=== PATIENT | male | born 1950 ===

== ENCOUNTER 2018-03-13 08:00 | Emergency (ER) | payer MEDICARE, MEDICAID ==
[2018-03-13 08:32] LABS: #Eosinphils 0.2 thou/uL (0.0-0.7); #Lymphocytes 1.6 thou/uL (1.20-3.40); #Monocytes 0.5 thou/uL (0.11-0.59); #Neutrophils 2.8 thou/uL (1.40-6.50); %Basophils 0.8 % (0.0-1.0); %Eosinophils 3.9 % (0.0-10.0); %Monocytes 8.9 % (0.0-10.0); %Neutrophils 55.4 % (42.0-75.0); Hemoglobin 13.3 g/dL (14.0-18.0); Mean Corpuscular HGB CONC 30.9 g/dL (32.0-36.0); Mean Corpuscular Hemoglobin 26.3 pg (27.0-31.0); Mean Corpuscular Volume 85.2 fL (78.0-98.0); Mean Platelet Volume 10.1 fL (7.4-10.4); Platelet Count 191 thou/uL (130-400); Red Blood Cell (RBC) Count 5.05 mill/uL (4.70-6.10); White Blood Cell (WBC) Count 5.1 thou/uL (4.8-10.8)
[2018-03-13 08:52] LABS: ALT (SGPT) 18 U/L (8-55); AST (SGOT) 16 U/L (5-34); Albumin 3.7 g/dL (3.4-4.8); Alkaline Phosphatase 76 U/L (40-150); Anion Gap 13 mmol/L (10-20); BUN (Urea Nitrogen) 43 mg/dL (8.4-25.7); Bilirubin, Total 0.5 mg/dL (0.2-1.2); CK (CPK) 38 U/L (30-200); Calc. Creatinine Clearance 0 mL/min (70-130); Calcium 9.5 mg/dL (7.8-10.44); Carbon Dioxide 24 mmol/L (23-31); Chloride 109 mmol/L (98-107); Estimated GFR-MDRD 37; Glucose 98 mg/dL (80-115); Lipase 60 U/L (8-78); Potassium 4.1 mmol/L (3.5-5.1); Protein, Total 6.7 g/dL (5.8-8.1); Sodium 142 mmol/L (136-145)
--- NOTE | 2018-03-13 09:00 | RAD ---
PORTABLE CHEST: Date: 03/13/18 PROVIDED CLINICAL HISTORY: Chest pain. FINDINGS: Cardiac and mediastinal silhouette is within normal limits. Lungs appear clear. No pleural fluid or p neumothorax apparent. IMPRESSION: No evidence for an acute cardiopulmonary process. POS: [facility]
[2018-03-13 09:13] LABS: CKMB 1.4 ng/mL (0-6.6)
[2018-03-13 11:22] LABS: INR-International Normal Ratio 1.1; PTT 35.1 SEC (22.9-36.1); Prothrombin Time 14.1 SEC (12.0-14.7)
[2018-03-13] MEDS ORDERED: Heparin 25,000 units/D5W 500 ML ONE (11:42)
[2018-03-13 12:46] LABS: Troponin I 0.074 ng/mL (< 0.028)
== END 2018-03-13 12:40 | disposition short-term general hospital (02) ==
LOC: EDBD 08:00 → ERS 08:00
DX: R07.2 Precordial pain (principal); N17.9 Acute kidney failure, unspecified; R79.89 Other specified abnormal findings of blood chemistry; I25.2 Old myocardial infarction; I25.10 Atherosclerotic heart disease of native coronary artery without angina pectoris; E78.5 Hyperlipidemia, unspecified; I10 Essential (primary) hypertension; F17.210 Nicotine dependence, cigarettes, uncomplicated; Z79.899 Other long term (current) drug therapy
CPT/HCPCS: 36415; 71045; 80053; 82550; 82553; 83690; 83880; 84484; 85025; 85610; 85730; 93005; 94760; 96365; J1644